=== PATIENT | female | born 1945 | race Caucasian/White ===

== ENCOUNTER 2021-03-12 12:56 | Emergency (ER) | payer OTHER ==
[2021-03-12 16:03] LABS: BASOPHIL 0.2 % (0-2); EOSINOPHIL 0.4 % (0-7); HCT 31.1 % (37.0-47.0); HGB 10.8 g/dl (12.5-16.0); LYMPHOCYTE 13.9 % (15-48); MCH 35.6 pg (25.0-31.0); MCHC 34.7 g/dL (32.0-36.0); MCV 102.6 fL (78.0-100.0); NEUTROPHIL 65.2 % (41-80); NRBC 0; RBC 3.03 M/uL (4.20-5.40); RDW 18.3 % (11.5-14.0); WBC 5.5 K/uL (4.0-10.5)
[2021-03-12 16:19] LABS: ALBUMIN 3.1 g/dL (3.4-5.0); CREATININE 0.94 mg/dL (0.51-0.95); GLOBULIN (CALCULATION) 3.3 g/dL; POTASSIUM 3.5 mmol/L (3.5-5.1); TOTAL PROTEIN 6.4 g/dL (6.4-8.2)
[2021-03-12 16:23] LABS: LACTIC ACID 2.3 mmol/L (0.4-1.9)
[2021-03-12 16:48] LABS: PLT 55 K/uL (150-400)
[2021-03-12 18:17] LABS: BILIRUBIN NEGATIVE (NEGATIVE); BLOOD TRACE-INTACT Ery/uL (NEGATIVE); CLARITY CLEAR (CLEAR); COLOR YELLOW (YELLOW); GLUCOSE (U) NORMAL (NORMAL); LEUKOCYTES 2+ Leu/uL (NEGATIVE); NITRITE NEGATIVE (NEGATIVE); PROTEIN 1+ mg/dL (NEGATIVE); SPECIFIC GRAVITY 1.015 (1.001-1.030); UROBILINOGEN 0.2 mg/dL (0.2-1.0)
[2021-03-12 18:25] LABS: BACTERIA 2+; MUCOUS MODERATE; URINARY WBC 20-50
[2021-03-12] MEDS ORDERED: BACTRIM DS TAB1 EACH PO (19:42)
== END 2021-03-12 20:40 | disposition home or self-care (01) ==
LOC: FER 12:56
PROVIDERS: Emergency Medicine
DX: R10.9 Unspecified abdominal pain (principal); N39.0 Urinary tract infection, site not specified; I10 Essential (primary) hypertension; E78.5 Hyperlipidemia, unspecified; Z85.038 Personal history of other malignant neoplasm of large intestine; Z88.5 Allergy status to narcotic agent
CPT/HCPCS: 36415; 80053; 81001; 83605; 83690; 85025; 87088; J1642; Q9967